=== PATIENT | female | born 1960 | race Caucasian/White ===

== ENCOUNTER 2017-08-31 09:01 | Day surgery (SDC) | payer MEDICARE ==
[2017-08-29 12:16] VITALS: BMI 42.0
[~2017-08-31 09:01] MED LIST: LACTATED RINGERS 1,000 ML IV SCH; LIDOCAINE 1% 20 ML VIAL (10MG/ML) FOR IV START INTRADERMA PRN
[2017-08-31 09:47] VITALS: RESP 18; TEMP 07.6
[2017-08-31] MEDS ORDERED: LIDOCAINE 1% INJ 10MG/ML (20 ML MDV) ONE (10:24)
[2017-08-31] MEDS ORDERED: PROPOFOL 10 MG/ML 20 ML VIAL IV ONE (10:24)
--- NOTE | 2017-08-31 10:46 | P.PCN ---
Date of Procedure: 08/31/17 Procedure(s) Performed: Brief history: Patient is a pleasant 57-year-old white female, scheduled for an elective upper endoscopy as well as colonoscopy as a part of evaluation of abdominal pain, intermittent nausea vomiting for the last 6 months duration. She is also scheduled for a colonoscopy as a part of screening for colon neoplasia. Procedure performed: Esophagogastroduodenoscopy biopsy Colonoscopy Preoperative diagnosis: Right upper quadrant abdominal pain, intermittent nausea and vomiting of 6 months duration Screening for colon cancer Anesthesia: MAC Procedure: After informed consent was obtained from the patient was brought into the endoscopy unit and IV sedation was administered by anesthesia under continuous monitoring. Initially upper endoscopy was done. The Olympus GF 160 video endoscope was inserted inserted into the mouth and esophagus intubated without any difficulty and was gradually advanced into the stomach and duodenum and carefully examined. The bulb and second part of the duodenum appeared normal. The scope was then withdrawn into the stomach adequately insufflated with air and upon careful examination the antrum had mild patchy areas of erythema and biopsies were done from this area. The body, cardia and fundus appeared normal. The scope was then withdrawn into the esophagus. small sliding Hiatal hernia noted. The diaphragmatic impression was located at 40 cm from the incisors. The GE junction was located at 38 cm to the incisors. It appeared reguwith 2 superficial erosions consistent with LA grade B reflux esophagitis.est of the esophagus appeared normal. Patient tolerated the procedure well. At this time the patient continued to remain sedation. Initial digital rectal examination was normal. Olympus CF 160 video colonoscope was then inserted into the rectum and gradually advanced to the cecum without any difficulty. Careful examination was performed as the scope was gradually being withdrawn. The prep was excellent. The cecum, ascending colon, transverse colon, descending colon, sigmoid colon and rectum appeared normal. Retroflexion was performed in the rectum and no lesions were noted. Patient tolerated the procedure well. Impression: 1. Upper endoscopy revealed mild antral gastritis, small hiatal hernia and LA grade B reflux esophagitis or peptic ulcer disease. 2..Colonoscopy was within normal limits with no evidence of colitis or colorectal neoplasia. Recommendations: Findings of this examination were discussed with the patient as well as her family. She was advised to follow with the biopsy results. She can have a repeat colonoscopy in 10 years.
[2017-08-31 11:27] VITALS: BP 118/83; PULSE 63
== END 2017-08-31 11:38 | disposition home or self-care (01) ==
LOC: ORWHC2ENDO 09:01
PROVIDERS: ATTEND Internal Medicine Gastroenterology
DX: Z12.11 Encounter for screening for malignant neoplasm of colon (principal); K29.50 Unspecified chronic gastritis without bleeding; K44.9 Diaphragmatic hernia without obstruction or gangrene; K21.0 Gastro-esophageal reflux disease with esophagitis; I25.2 Old myocardial infarction; I25.10 Atherosclerotic heart disease of native coronary artery without angina pectoris; I10 Essential (primary) hypertension; E78.5 Hyperlipidemia, unspecified; J44.9 Chronic obstructive pulmonary disease, unspecified; F17.200 Nicotine dependence, unspecified, uncomplicated; Z88.2 Allergy status to sulfonamides; Z79.82 Long term (current) use of aspirin; Z79.51 Long term (current) use of inhaled steroids; Z79.899 Other long term (current) drug therapy
CPT/HCPCS: 43239; 88305; 88342; G0121; J2001; J2704

== ENCOUNTER 2023-06-23 08:36 | Day surgery (SDC) | payer MEDICARE ==
[2023-06-20 11:54] VITALS: BMI 39.3
[~2023-06-23 08:36] MED LIST changes: +ALPRAZolam 0.25 MG TAB PO PRN; +ALPRAZolam 0.5 MG TAB PO PRN; +ASPIRIN 325 MG TAB PO STA; +ATORVASTATIN 80 MG TAB PO STA; +HEPARIN SODIUM,PORCINE 10,000 UNIT in SODIUM CHLORIDE 0.9% 1,000 ML IRRIGATION PRN; +HEPARIN SODIUM,PORCINE 2,500 UNIT in SODIUM CHLORIDE 0.9% 250 ML IRRIGATION PRN; -LACTATED RINGERS 1,000 ML IV SCH; -LIDOCAINE 1% 20 ML VIAL (10MG/ML) FOR IV START INTRADERMA PRN; +NITROGLYCERIN SL TABS 0.4 MG TAB SUBLINGUAL PRN
[2023-06-23] MEDS ORDERED: IV FLUID CONTINUATION 1,000 ML IV ONE (09:15)
[2023-06-23 09:42] LABS: African American GFR (CKD) >90 (>60 ml/min/1.73 sqM); Anion Gap 11 mmol/L; Blood Urea Nitrogen 12 mg/dL (7-17); Calcium 8.7 mg/dL (8.4-10.2); Carbon Dioxide 22 mmol/L (22-30); Chloride 103 mmol/L (98-107); Glucose 140 mg/dL (74-99); Non-African American GFR(CKD) >90 (>60 ml/min/1.73 sqM); Sodium 136 mmol/L (137-145)
[2023-06-23 09:44] LABS: Potassium 4.6 mmol/L (3.5-5.1)
[2023-06-23 09:55] LABS: Basophils % (A) 0 %; Eosinophils # (A) 0.3 k/uL (0-0.7); Eosinophils % (A) 2 %; HCT 42.6 % (34.0-46.0); HGB 13.7 gm/dL (11.4-16.0); Lymphocytes # (A) 2.1 k/uL (1.0-4.8); Lymphocytes % (A) 17 %; MCH 28.4 pg (25.0-35.0); MCHC 32.2 g/dL (31.0-37.0); MCV 88.3 fL (80.0-100.0); Mean Platelet Volume 8.3; Monocytes # (A) 0.5 k/uL (0-1.0); Monocytes % (A) 4 %; Neutrophils # (A) 9.2 k/uL (1.3-7.7); Neutrophils % (A) 75 %; Platelet Count 316 k/uL (150-450); RBC 4.83 m/uL (3.80-5.40); RDW 14.4 % (11.5-15.5); WBC 12.1 k/uL (3.8-10.6)
[2023-06-23] MEDS ORDERED: LIDOCAINE 1% INJ 10MG/ML (20 ML MDV) ONE (11:02)
[2023-06-23] MEDS ORDERED: VERAPAMIL 2.5 MG/ML 2 ML AMP ONE (11:02)
[2023-06-23] MEDS ORDERED: HEPARIN SODIUM 1,000 UN/ML (10ML VL) ONE (11:02)
[2023-06-23] MEDS ORDERED: fentaNYL (PF) 50 MCG/ML 2 ML AMP ONE (11:02)
[2023-06-23] MEDS ORDERED: fentaNYL (PF) 50 MCG/ML 2 ML AMP IVP ONE (11:52)
[2023-06-23] MEDS ORDERED: LIDOCAINE 1% INJ 10MG/ML (5 ML VIAL-PF) SQ ONE (11:54)
[2023-06-23] MEDS: MIDAZOLAM 2 MG/2 ML VIAL IVP ONE ×2 (11:55→12:06)
[2023-06-23] MEDS ORDERED: VERAPAMIL SYRINGE (5 MG/10 ML) INTRAARTER ONE (12:05)
[2023-06-23] MEDS: HEPARIN SODIUM 1,000 UN/ML (10ML VL) IVP ONE ×3 (12:08→12:32)
[2023-06-23] MEDS ORDERED: CLOPIDOGREL 75 MG TAB ONE (12:14)
[2023-06-23] MEDS ORDERED: CLOPIDOGREL 75 MG TAB PO ONE (12:17)
[2023-06-23] MEDS ORDERED: IOPAMIDOL-370 100ML BTL INJ ONE ×2 (12:34→12:51)
[2023-06-23] MEDS ORDERED: ZOLPIDEM 5 MG TAB PO PRN (13:03)
[2023-06-23] MEDS ORDERED: ATROPINE SULFATE 0.1 MG/ML 10ML SYRINGE IV PRN (13:03)
[2023-06-23] MEDS ORDERED: NITROGLYCERIN SL TABS 0.4 MG TAB SUBLINGUAL PRN (13:03)
[2023-06-23] MEDS ORDERED: RX INFO: IV CONTRAST WAS GIVEN 1 EACH MISC MISCELLANE PRN (13:03)
[2023-06-23] MEDS ORDERED: MAG HYDROX/AL HYDROX/SIMETH 30 ML CUP PO PRN (13:03)
--- NOTE | 2023-06-23 13:11 | P.CARDCATH ---
Date of Procedure: 06/23/23 Description of Procedure: Cardiac Catheterization: The patient is a 63-year-old female with known history of hypertension, hyperlipidemia, chronic tobacco use and a prior history of PCI who presented with symptoms of recurrent chest discomfort consistent with angina pectoris. Recommendations were made regarding cardiac catheterization, the risks and the complications were discussed with the patient who is in full understanding and agreement. 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 Using Xylocaine Anesthesia and Seldinger technique, a 6-Namibian sheath was introduced in the right radial artery . Subsequently, selective coronary angiography was performed using a 5-Namibian 3.5 bend Rebeca catheter. Multiple views of the coronary artery including hemiaxial views were obtained. The 5-Namibian pigtail catheter was used to cross the aortic valve and LVEDP was calculated. PCI: After removing the catheters a 6-Namibian FR 4 guiding catheter was introduced and the system and after cannulating the right coronary ostium a 0.014 BMW J-wire was positioned in the distal RCA subsequently a 2.5X 12 mm NC Treck was advanced into inflation at 8 grace were done. After removing the balloon a OneTouchEMR intravascular ultrasound catheter was introduced and images were obtained. Subsequently a 2.5 by 38 mm Xience irma point stent was positioned distally and deployed at 16 grace. After removing the balloon and 3.0 x 38 mm Xience irma point stent was deployed proximal to the first one at 16 grace. After removing the balloon repeat intravascular ultrasound was performed and subsequently a 3.0 x 20 mm NC Treck balloon was advanced and multiple inflations throughout both stents were done at 10 grace. After removing the balloon and the wire and revealed stable stenting. Following that, catheter and sheath were removed. Hemostasis was obtained with deployment of TR band . There was no immediate complication. Patient was returned to room in stable condition. Of note, the patient received a total of 8000 units of intravenous heparin as well as intra- arterial verapamil. She received an oral loading dose of clopidogrel. She had chest discomfort with the inflations that resolved at the end of the procedure. Her ACT was monitored. Findings: Left main: This is a large size vessel bifurcating into LAD and left circumflex, left main has no obstructive disease LAD: This is a large size vessel, reaching to the apex, giving rise to a large diagonal branch, the LAD has mild disease of 10% in the midsegment with no high- grade stenosis Left circumflex: This is a codominant vessel giving rise to a large proximal obtuse margin branch and distally bifurcating into PDA and PLV, the left circumflex has mild plaque of 10-20% proximally RCA: This is a codominant moderately sized vessel giving rise to PDA distally. The stented segment has 80-90% stenosis. The mid segment has long diffuse disease with an area of stenosis up to 70%. The acute marginal branch has an 80% plaque. Left Ventriculogram: Not performed Hemodynamics: There was no gradient across the aortic valve, LVEDP was 12-16 mmHg Conclusion: 1. Severe disease in the mid and distal right coronary artery 2. Mild disease in the LAD and left circumflex 3. Codominant system 4. Successful stenting of the RCA with reduction of stenosis from 85% to 0% with intravascular ultrasound imaging Recommendations: The patient will continue on aspirin and Plavix for 6 months without any interruption in addition to aggressive coronary her risks modifications and smoking cessation. The findings and the recommendations were discussed with the patient and the family and they were in full understanding and agreement. Duration of sedation is 57 minutes.
[2023-06-23] MEDS ORDERED: SODIUM CHLORIDE 0.9% 1,000 ML in EMPTY BAG 1 BAG IV SCH (13:15)
[2023-06-23] MEDS: NICOTINE 21MG/24HR PATCH TRANSDERM SCH (16:00)
[2023-06-23] MEDS: SODIUM CHLORIDE 0.9% 1,000 ML in EMPTY BAG 1 BAG IV SCH ×2 (18:07→20:09)
[2023-06-23] MEDS ORDERED: ACETAMINOPHEN TAB 325 MG TAB PO PRN (19:36)
[2023-06-23] MEDS: METOPROLOL TARTRATE 25 MG TAB PO SCH (20:09)
[2023-06-23] MEDS: ALBUTEROL NEBULIZED 2.5 MG/3 ML INHALATION PRN (20:34)
[2023-06-23] MEDS ORDERED: traZODone HCL 100 MG TAB PO SCH (21:00)
[2023-06-24] MEDS ORDERED: ALBUTEROL NEBULIZED 2.5 MG/3 ML INHALATION SCH
[2023-06-24 03:15] VITALS: RESP 18
[2023-06-24] MEDS: SODIUM CHLORIDE 0.9% 1,000 ML in EMPTY BAG 1 BAG IV SCH (05:59)
--- NOTE | 2023-06-24 07:37 | P.PN ---
Subjective Progress Note Date: 06/24/23 PROGRESS NOTE The patient is a 63-year-old female with a known history of hypertension, hyperlipidemia and CAD who presented with symptoms of worsening chest discomfort, underwent cardiac catheterization and was found to have severe obstructive disease in the RCA and underwent stenting of that vessel. She is doing well this morning, she denies any chest discomfort. Her breathing is stable. She continues to be in sinus mechanism. Ambulating. Medications: Aspirin, Plavix 75 mg daily, Lipitor 40 mg daily, isosorbide mononitrate 30 mg daily, metoprolol tartrate 25 mg twice a day, trazodone PHYSICAL EXAMINATION: Blood pressure 123/73 heart rate 70 LUNGS: Mild scattered rhonchi HEART: Regular rate and rhythm, S1, S2. No S3. Systolic ejection murmur ABDOMEN: Soft, nontender, no organomegaly EXTREMETIES: No edema, right radial pulse intact LAB: Sinus mechanism with no acute ST segment changes, IMPRESSION: 1. Status post stenting of the RCA 2. History of hypertension 3. History of hyperlipidemia 4. Chronic tobacco use PLAN: 1. Continue present therapy 2. Increase physical activity 3. Discharged home today 4. And follow-up as an outpatient Objective - Vital Signs Vital signs: Vital Signs Temp 98.5 F 06/24/23 03:14 Pulse 74 06/24/23 03:14 Resp 18 06/24/23 03:14 BP 123/73 06/24/23 03:14 Pulse Ox 95 06/24/23 03:14 FiO2 Intake & Output 06/23/23 06/24/23 06/24/23 18:59 06:59 18:59 Intake Total 1680 Balance 1680 Weight 102.9 kg 103.9 kg Intake: IV 900 Oral 780 Other: # Voids 1 1 - Labs CBC & Chem 7: 06/23/23 09:15 06/23/23 09:15 Labs: Abnormal Lab Results - Last 24 Hours (Table) 06/23/23 06/23/23 Range/Units 09:15 09:15 WBC 12.1 H (3.8-10.6) k/uL Neutrophils # 9.2 H (1.3-7.7) k/uL Sodium 136 L (137-145) mmol/L Glucose 140 H (74-99) mg/dL
[2023-06-24] MEDS: METOPROLOL TARTRATE 25 MG TAB PO SCH (08:18)
[2023-06-24] MEDS: NICOTINE 21MG/24HR PATCH TRANSDERM SCH (08:18)
[2023-06-24] MEDS ORDERED: ISOSORBIDE MONONITRATE ER 30 MG TAB.ER.24H PO SCH (09:00)
[2023-06-24] MEDS ORDERED: CLOPIDOGREL 75 MG TAB PO SCH (09:00)
[2023-06-24] MEDS ORDERED: ASPIRIN 81 MG PO SCH (09:00)
[2023-06-24] MEDS ORDERED: ATORVASTATIN 40 MG TAB PO SCH (09:00)
[2023-06-24 09:57] VITALS: BP 143/79; TEMP 98.1
[2023-06-24] MEDS: ALBUTEROL NEBULIZED 2.5 MG/3 ML INHALATION PRN (11:49)
[2023-06-24 11:51] VITALS: PULSE 72
[2023-06-24 12:06] LABS: African American GFR (CKD) >90 (>60 ml/min/1.73 sqM); Anion Gap 5 mmol/L; Blood Urea Nitrogen 9 mg/dL (7-17); Calcium 8.5 mg/dL (8.4-10.2); Carbon Dioxide 27 mmol/L (22-30); Chloride 103 mmol/L (98-107); Glucose 112 mg/dL (74-99); Non-African American GFR(CKD) >90 (>60 ml/min/1.73 sqM); Potassium 4.3 mmol/L (3.5-5.1); Sodium 135 mmol/L (137-145)
== END 2023-06-24 12:47 | disposition home or self-care (01) ==
LOC: CATHCVL 08:36 → 3SCARD 14:50 → CATHCVL 06-24 12:47
PROVIDERS: ATTEND Internal Medicine Interventional Cardiology
DX: I25.10 Atherosclerotic heart disease of native coronary artery without angina pectoris (principal); I10 Essential (primary) hypertension; E78.5 Hyperlipidemia, unspecified; F17.210 Nicotine dependence, cigarettes, uncomplicated; Z82.49 Family history of ischemic heart disease and other diseases of the circulatory system; Z79.82 Long term (current) use of aspirin; Z79.899 Other long term (current) drug therapy
CPT/HCPCS: 94640 ×2; 92978; 93458; 80048 ×2; 85025; C9600; S4990; J2250; J2001; J3010; J1644; Q9967